=== PATIENT | male | born 1990 | race Caucasian/White ===

== ENCOUNTER 2018-02-16 00:01 | Emergency (ER) | payer SELFPAY ==
[~2018-02-16] VITALS: Ht 180.3 cm; Wt 81.6 kg
[2018-02-16 00:14] VITALS: BP 124/64
[2018-02-16] MEDS ORDERED: Naloxone 1mg/ml 2ml IM ONE (00:45)
[2018-02-16 01:05] VITALS: BP 124/64
--- NOTE | 2018-02-16 01:30 | Emergency Room Report ---
History of Present Illness General Chief Complaint: Medication Refill Source: Patient Present Illness HPI This patient is here requesting refill Adderall, Klonopin, Buprenorphine. He was brought by police. It sounds like he was found on ground. He has luggage bag with him. he is not very cooperative with talking to me but it sounds as though he is staying with a friend. He came up from [place] a month ago driven by his ex. He denies trauma. He ate normally today, no urine/bm complaints. No fever, no shortness of breath, no chest pain, no nausea, no vomiting, no diarrhea, no abdominal pain, no syncope, LOC, dizziness, lightheadedness, headache. Allergies: Coded Allergies: No Known Allergies (Unverified , 02/16/18) Nursing Documentation-[facility] Past Medical History: No History, Except For Hx Cardiac Problems: No - Hep C, HIV Review of Systems Constitutional: Denies: fever Eye: Denies: acuity changes Respiratory: Denies: cough, shortness of breath Cardiovascular: Denies: chest pain Gastrointestinal: Denies: nausea, vomiting Skin: Denies: rash Neurological: Denies: headache Physical Exam Vital Signs Date Time Temp Pulse Resp B/P (MAP) Pulse Ox O2 Delivery O2 Flow Rate FiO2 02/16/18 00:06 97.8 95 12 124/64 95 Room Air 97.9 General Appearance: well appearing, no apparent distress Head: normocephalic, atraumatic ENT: hearing grossly normal, normal voice Neck: full range of motion, supple Respiratory: no respiratory distress, speaking full sentences Musculoskeletal: no calf tenderness Neurologic: alert, normal gait Psychiatric: mood/affect normal Skin: no rash Medical Decision Making Diagnostic Impression: Primary Impression: Encounter for medication refill ER Course pt. informed these meds must be from primary source. pt. was not surprised to hear this. i believe he was here primarily to sleep. Return if new or worse symptoms.EDs do NOT diagnose nor manage incidental, non- emergent or chronic findings. Emergency departments do not prescribe medications for chronic conditions. Emergency departments do not prescribe narcotics for chronic conditions. You need to see a primary physician. Look on your Medical card for the doctor/ clinic name and/or phone number to find one. Here are some other options: [facility], [facility], [facility], [facility], [facility]. Last Vital Signs Date Time Temp Pulse Resp B/P (MAP) Pulse Ox O2 Delivery O2 Flow Rate FiO2 02/16/18 00:14 97.9 95 12 124/64 95 Room Air 97.9 Disposition: HOME, SELF-CARE Condition: Stable Referrals: NOT CHOSEN IPA/,REFERRING (PCP) Patient Instructions: Medicine Refill at the Emergency Department Lyle Stewart M.D. Feb 16, 2018 01:30
== END 2018-02-16 01:05 | disposition home or self-care (01) ==
LOC: EMR 00:20
DX: Z76.0 Encounter for issue of repeat prescription (principal)
CPT/HCPCS: 96372; 99283; J2310